=== PATIENT | female | born 1940 | race Caucasian/White ===

== ENCOUNTER 2023-10-03 19:57 | Inpatient (IN) | payer MEDICARE, MEDICAID ==
[~2023-10-03] VITALS: Ht 170.2 cm; Wt 78.8 kg
[2023-10-03] MEDS ORDERED: Albuterol/Ipratropium 3 MG-0.5 MG/3 ML Neb Soln IH ONE (20:15)
[2023-10-03 20:21] LABS: BASO # 0.1 K/mm3 (0.0-0.2); BASO % 0.8 % (0.0-2.0); EOS # 0.2 K/mm3 (0.0-0.7); EOS % 3.4 % (0.0-4.0); GRAN # 3.8 K/mm3 (1.4-6.5); GRAN % 63.7 % (42.2-75.2); HEMATOCRIT 39.8 % (37.0-47.0); LYMPH # 1.3 K/mm3 (1.2-3.4); LYMPH % 22.7 % (20.0-51.0); MEAN CELL VOLUME 106 fl (80.0-100.0); MEAN CORPUSCULAR HEMOGLOBIN 32 pg (27-31); MEAN CORPUSCULAR HGB CONC 30 g/dl (33.0-37.0); MONO # 0.5 K/mm3 (0.1-0.6); MONO % 9.1 % (1.7-9.3); PLATELET COUNT 203 K/mm3 (130-400); RED BLOOD COUNT 3.75 M/mm3 (4.10-5.30); REDCELL DISTRIBUTION WIDTH-CV 14.3 % (11.5-14.5)
[2023-10-03 20:37] LABS: ALBUMIN 3.2 g/dL (3.4-4.8); BILIRUBIN,TOTAL 0.8 mg/dL (0.2-1.2); C-REACTIVE PROTEIN 3.23 mg/dL (0.00-0.50); CALCIUM 9.5 mg/dL (8.4-10.2); CREATININE, serum 0.98 mg/dL (0.57-1.11); TOTAL PROTEIN 8.8 g/dl (6.2-8.1)
[2023-10-03 20:44] LABS: TROPONIN-I 0.064 ng/mL (0.00-0.033)
[2023-10-03] MEDS ORDERED: Furosemide 40 MG/4 ML VIAL IV ONE (21:15)
[2023-10-03 21:54] LABS: URINE APPEARANCE CLEAR (CLEAR/HAZY); URINE BLOOD NEGATIVE (NEGATIVE); URINE COLOR YELLOW (YELLOW); URINE GLUCOSE NEGATIVE (NEGATIVE); URINE KETONE NEGATIVE (NEGATIVE); URINE NITRATE NEGATIVE (NEGATIVE); URINE PROTEIN(semi-quant) NEGATIVE (NEGATIVE)
[2023-10-03 21:55] LABS: COLLECTION METHOD CATHETER
[2023-10-03] MEDS ORDERED: Albuterol/Ipratropium 3 MG-0.5 MG/3 ML Neb Soln IH PRN (22:15)
[2023-10-03] MEDS ORDERED: ELIQUIS 5MG PO (22:46)
[2023-10-03] MEDS ORDERED: NEURONTIN100 MG/CAP PO (22:47)
[2023-10-03] MEDS ORDERED: LASIX 40MG TABL40 MG PO (22:47)
[2023-10-03] MEDS ORDERED: FLOMAX 0.40.4 MG/CAP PO (22:48)
[2023-10-03] MEDS ORDERED: DESYREL 50MG50 MG PO (22:48)
[2023-10-03] MEDS ORDERED: IMODIUM 2MG CAPS2 MG PO (22:49)
[2023-10-03] MEDS ORDERED: MACROBID 1100 MG/CAP PO (22:49)
[2023-10-03] MEDS ORDERED: SENNA-S 50 MG-81 TAB PO (22:49)
[2023-10-03] MEDS ORDERED: PERCOCET 325 MG1 TA2 PO ×2 (22:50→22:51)
[2023-10-03] MEDS ORDERED: TOPROL XL 50MG50 MG PO (22:50)
[2023-10-03] MEDS ORDERED: TYLENOL 500MG500 MG PO (22:53)
[2023-10-03] MEDS ORDERED: K-TAB20 PO (22:53)
[2023-10-03] MEDS ORDERED: ASPIRIN E.C. 8181 MG PO (22:54)
[2023-10-03] MEDS ORDERED: COLACE 100100 MG/CAP PO (22:54)
[2023-10-03] MEDS ORDERED: VENTOLIN0.09 MG IH (22:54)
[2023-10-03] MEDS ORDERED: DELSYM COUGH-S180 ML PO (22:55)
[2023-10-03 22:57] LABS: MAGNESIUM 1.8 mg/dL (1.6-2.6)
[2023-10-03] MEDS ORDERED: DULCOLAX S10 MG/SUPP RC (22:57)
[2023-10-03] MEDS ORDERED: Sennosides/Docusate 8.6-50 MG TAB PO PRN (23:00)
[2023-10-03] MEDS ORDERED: oxyCODONE/Acetaminophen 5-325 MG TAB PO PRN (23:00)
[2023-10-03] MEDS ORDERED: Acetaminophen 500 MG TAB PO PRN (23:00)
[2023-10-03] MEDS ORDERED: cefTRIAXone 1 G in Water For Injection,Sterile 10 ML IV SCH (23:00)
[2023-10-03 23:18] LABS: THYROID STIMULATING HORMONE 2.922 uIU/mL (0.350-4.940)
[2023-10-03] MEDS ORDERED: CEFACLOR250 MG PO (23:44)
[2023-10-04] VITALS (9 sets, daily range): BP systolic 107–138; BP diastolic 56–87; PULSE 70–75; TEMP 97.3–98
[2023-10-04] MEDS ORDERED: Glucagon 1 MG VIAL IM PRN (01:30)
[2023-10-04] MEDS ORDERED: Dextrose (Glucose) 15 GM (4 x 3.75 GM) Chewable TABLET PACK PO PRN (01:30)
[2023-10-04] MEDS ORDERED: Dextrose 50% Water 25 GM/50 ML SYRINGE IV PRN (01:30)
[2023-10-04] MEDS ORDERED: Albuterol/Ipratropium 3 MG-0.5 MG/3 ML Neb Soln IH SCH (02:00)
--- NOTE | 2023-10-04 03:32 | NUR ---
TROPONIN I IS 0.054, TRENDING DOWN. PROVIDER NOTIFIED.
--- NOTE | 2023-10-04 06:22 | NUR ---
PT ARRRIVED TO MED UNIT FROM ED AROUND 0000, SHE IS ALERT AND ORIENTED, VERY PLEASANT WOMAN WITH MANY COMPLIMENTS AND IS A GREAT HISTORIAN. SHE HAS A PATENT IV INT TO HER LFA. VSS, ASSESSED AND HAS MULTIPLE WOUNDS TO HER BILAT LOWER EXT. WOUND AND CARDIOLOGY IS CONSULTED. WE GAVE HER A BED BATH HER SKIN LOOKS GOOD ASIDE FROM HER WOUNDS TO HER LOWER EXTREMITES. CALL LIGHT WITHIN REACH, BED ALARM ENGAGED.
[2023-10-04] MEDS ORDERED: Furosemide 40 MG/4 ML VIAL IV SCH (07:00)
[2023-10-04] MEDS ORDERED: Formoterol Neb Soln 20 MCG/2 ML UD IH SCH (07:00)
[2023-10-04] MEDS ORDERED: Budesonide Neb Susp 0.5 MG/2 ML AMP IH SCH (07:00)
[2023-10-04 07:40] LABS: BASO % 0.8 % (0.0-2.0); EOS # 0.2 K/mm3 (0.0-0.7); EOS % 3.3 % (0.0-4.0); GRAN # 3.2 K/mm3 (1.4-6.5); GRAN % 63.4 % (42.2-75.2); LYMPH # 1.1 K/mm3 (1.2-3.4); LYMPH % 21.3 % (20.0-51.0); MEAN CELL VOLUME 102 fl (80.0-100.0); MEAN CORPUSCULAR HGB CONC 31 g/dl (33.0-37.0); MONO # 0.6 K/mm3 (0.1-0.6); PLATELET COUNT 186 K/mm3 (130-400); RED BLOOD COUNT 3.11 M/mm3 (4.10-5.30); REDCELL DISTRIBUTION WIDTH-CV 14.4 % (11.5-14.5)
[2023-10-04 07:44] LABS: HEMATOCRIT 31.7 % (37.0-47.0); MEAN CORPUSCULAR HEMOGLOBIN 32 pg (27-31)
[2023-10-04 07:45] LABS: HEMOGLOBIN 9.9 g/dl (12.5-16.0)
[2023-10-04] MEDS ORDERED: Insulin Lispro (HumaLOG) SQ SCH (08:00)
[2023-10-04 08:59] LABS: CREATININE, serum 0.84 mg/dL (0.57-1.11); POTASSIUM 3.6 mEq/L (3.5-4.5)
[2023-10-04] MEDS ORDERED: Apixaban 5 MG TABLET PO SCH (09:00)
[2023-10-04] MEDS ORDERED: Docusate Sodium 100 MG CAP PO SCH (09:00)
[2023-10-04] MEDS ORDERED: oxyCODONE/Acetaminophen 5-325 MG TAB PO SCH (09:00)
[2023-10-04] MEDS ORDERED: Gabapentin 100 MG CAP PO SCH (09:00)
[2023-10-04] MEDS ORDERED: dexAMETHasone 10 MG/ML VIAL IV SCH (09:00)
--- NOTE | 2023-10-04 09:31 | NUR ---
0810- PAGEMalu, CALL RETURNED AND NOTIFIED OF CONSULT.
--- NOTE | 2023-10-04 11:13 | NUR ---
SW met with patient to complete intake. Patient provides she lives in [facility] at [facility]. Point of contact is daughter Florinda Butler [phone]. Patient provides she utilizes a wheelchair, obtains assistance with some tasks, unsure of PCP is utilizes [facility]. Patient plans to return to [facility] upon discharge. FERNANDEZ will continue to follow. Discharge plan: [facility] return
[2023-10-04] MEDS ORDERED: traZODone 50 MG TAB PO SCH (21:00)
--- NOTE | 2023-10-04 22:00 | NUR ---
Patient resting in bed. Rates her pain at 5/10, prn pain meds given. Needs met. Turned patient to left side. Assessment compelte. IV in left forearm flushes easily with no complications. Call light and personal items in reach. Bed in low position and bed alarm on.
[2023-10-05] VITALS (11 sets, daily range): BP systolic 106–161; BP diastolic 61–85; PULSE 63–73; TEMP 97.8–98.4
--- NOTE | 2023-10-05 01:15 | NUR ---
Talked with hospitalist Meredith about patient having scheduled bladder scans and notified patient is voiding appropriately and last bladder scan was 184. Recieved orders to move bladder scan to PRN.
--- NOTE | 2023-10-05 05:50 | NUR ---
Patient resting in bed. Denies any pain or needs at this time. No changes over night. Call light and personal items in reach. Bed in low position and bed alarm on.
--- NOTE | 2023-10-05 07:36 | NUR ---
SPO2 ON RA 92%, BE CL T/O, NPC, REGAN RTY TX WEL.
[2023-10-05 08:26] LABS: BASO # 0.1 K/mm3 (0.0-0.2); EOS # 0.1 K/mm3 (0.0-0.7); EOS % 1.8 % (0.0-4.0); GRAN # 3.4 K/mm3 (1.4-6.5); GRAN % 66.1 % (42.2-75.2); HEMATOCRIT 33.2 % (37.0-47.0); HEMOGLOBIN 10.6 g/dl (12.5-16.0); LYMPH # 1.1 K/mm3 (1.2-3.4); LYMPH % 20.6 % (20.0-51.0); MEAN CELL VOLUME 100 fl (80.0-100.0); MEAN CORPUSCULAR HEMOGLOBIN 32 pg (27-31); MEAN CORPUSCULAR HGB CONC 32 g/dl (33.0-37.0); MEAN PLATELET VOLUME 10.3 fl (7.4-10.4); MONO # 0.5 K/mm3 (0.1-0.6); MONO % 10.3 % (1.7-9.3); PLATELET COUNT 201 K/mm3 (130-400); RED BLOOD COUNT 3.32 M/mm3 (4.10-5.30); REDCELL DISTRIBUTION WIDTH-CV 14.2 % (11.5-14.5)
[2023-10-05 08:41] LABS: CALCIUM 8.9 mg/dL (8.4-10.2); CREATININE, serum 0.87 mg/dL (0.57-1.11); POTASSIUM 3.7 mEq/L (3.5-4.5)
--- NOTE | 2023-10-05 10:00 | NUR ---
PT LAYING IN BED UPON ENTERING. ASSESSMENT DONE, MEDS GIVEN PER ORDER. PT ORIENTED TO PERSON, PLACE AND TIME, NOT SITUATION. INT TO LEFT FOREARM PATENT. PT DENIES PAIN AND SCHEDULED PERCOCET RETURNED TO [facility]. LEFT HEEL AND RIGHT FOOT WOUNDS DRESSED BY WOUND CARE THIS MORNING, BOTH CLEAN DRY AND INTACT. MULTIPLE TOES AMPUTATED. PT DENIES NEEDS. BED IN LOWEST POSITION, CALL LIGHT IN REACH.
[2023-10-05] MEDS ORDERED: DELSYM30 MG/5 ML PO (10:46)
[2023-10-05] MEDS ORDERED: LASIX 40MG TABL40 MG PO (10:48)
--- NOTE | 2023-10-05 13:18 | NUR ---
Initial visit; Patient thanked Information Services Manager for looking in on her and offering Spiritual Care. She stated the would like to be kept in Information Services Manager's prayers and thanked Information Services Manager for offering God's blessings.
--- NOTE | 2023-10-05 15:52 | NUR ---
Product Development Engineer contacted Brenda at [facility] and sent clinical updates via secure email. FERNANDEZ also requested copy of DPOA-HC. FERNANDEZ contacted patient's daughter, Estefania to provide update. Estefania provided contact information also for her brother, Ric (ph#[phone]). FERNANDEZ followed up with Brenda who advised patient has used all of her skilled days and has been getting PT B therapy. Discharge Plan: [facility] with Part B therapy
--- NOTE | 2023-10-05 18:26 | NUR ---
PT TRANSFERRED TO CHAIR WITH 2 ASSIST AND GAIT BELT. DINNER AT BEDSIDE. PT DENIES NEEDS. CHAIR ALARM ON, CALL LIGHT IN REACH
--- NOTE | 2023-10-05 22:27 | NUR ---
Shift assessment complete. Patient denies pain at this time. Assisted her from chair to bed with help of PCT. Denies shortness of breath or chest pain. Call light is within reach. Bed is locked and in low position.
[2023-10-06] VITALS (8 sets, daily range): BP systolic 118–137; BP diastolic 55–76; PULSE 67–71; TEMP 97.5–98
[2023-10-06 06:40] LABS: BASO % 0.5 % (0.0-2.0); EOS # 0.1 K/mm3 (0.0-0.7); EOS % 1.1 % (0.0-4.0); GRAN % 71.9 % (42.2-75.2); HEMOGLOBIN 10.1 g/dl (12.5-16.0); LYMPH % 17.4 % (20.0-51.0); MEAN CELL VOLUME 99 fl (80.0-100.0); MEAN CORPUSCULAR HEMOGLOBIN 32 pg (27-31); MEAN CORPUSCULAR HGB CONC 32 g/dl (33.0-37.0); MEAN PLATELET VOLUME 10.4 fl (7.4-10.4); MONO # 0.5 K/mm3 (0.1-0.6); MONO % 8.7 % (1.7-9.3); PLATELET COUNT 212 K/mm3 (130-400); RED BLOOD COUNT 3.18 M/mm3 (4.10-5.30)
[2023-10-06 06:43] LABS: HEMATOCRIT 31.6 % (37.0-47.0)
[2023-10-06 07:03] LABS: CALCIUM 8.7 mg/dL (8.4-10.2); CREATININE, serum 0.79 mg/dL (0.57-1.11); POTASSIUM 3.4 mEq/L (3.5-4.5)
--- NOTE | 2023-10-06 10:20 | NUR ---
patient alert and oriented to self. patient reports pain of 3/10. RA, sitting in bed finishing up breakfast.shift assessment completed. patient did have a v-tach episode earlier this morning (provider was notified at 0808). patient felt fine at the time at the time and was receiving RT treatment. call light within reach. bed at lowest position.
[2023-10-06] MEDS ORDERED: *Potassium Replacement Protocol MC SCH (11:15)
[2023-10-06] MEDS ORDERED: Potassium Bicarbonate/Citrate 20 MEQ Effervescent TAB PO SCH (11:15)
[2023-10-06] MEDS ORDERED: PREDNISONE20 MG PO (11:28)
[2023-10-06] MEDS ORDERED: LASIX 40MG TABL40 MG PO (11:33)
[2023-10-06] MEDS ORDERED: RT ADVAIR 228 DISKUS IH (11:34)
[2023-10-06] MEDS ORDERED: Amiodarone 200 MG TAB PO SCH (12:15)
[2023-10-06] MEDS ORDERED: Magnesium Sulfate 2 GM/50 ML IV SOLN IV SCH (12:45)
--- NOTE | 2023-10-06 13:03 | NUR ---
patient IV infiltrated. iv stopped and removed from patient. a new iv was started on right forarm.
--- NOTE | 2023-10-06 13:15 | NUR ---
patient dressing changed. some yellow dischargre on wound. some foul smell present.
--- NOTE | 2023-10-06 13:30 | NUR ---
patient escorted out of [facility] staff who will be transporting her back to that facility. wheelchair was borrowed from this hospital due to staff picking up patient did not have one available.
[2023-10-06] MEDS ORDERED: CORDARONE200 MG/TAB PO (15:06)
[2023-10-06] MEDS ORDERED: TOPROL XL 25MG25 MG PO (15:06)
--- NOTE | 2023-10-06 15:22 | NUR ---
FERNANDEZ sent discharge orders and med list via secure email to Brenda at [facility]. Transport here to take patient to facility. SW met with patient earlier today to complete Medicare IM form. Patient signed, original placed on chart, copy provided to patient.
--- NOTE | 2023-10-06 15:30 | NUR ---
patient escorted out of unit by [facility] staff who will be transporting her back to that facility. wheelchair was borrowed from this hospital due to staff picking up patient did not have one available.
--- NOTE | 2023-10-06 15:50 | NUR ---
patient shift report given to nurse receiving patient at [facility].
== END 2023-10-06 15:30 | DRG 280 ==
LOC: COL.ER 19:57 → MEDICAL 22:09
PROVIDERS: Emergency Medicine; Nurse Practitioner Family; ADMIT Hospitalist
DX: I50.9 Heart failure, unspecified (principal); J96.01 Acute respiratory failure with hypoxia; I21.4 Non-ST elevation (NSTEMI) myocardial infarction; J44.1 Chronic obstructive pulmonary disease with (acute) exacerbation; I48.20 Chronic atrial fibrillation, unspecified; N39.0 Urinary tract infection, site not specified; I35.0 Nonrheumatic aortic (valve) stenosis; Z79.01 Long term (current) use of anticoagulants; R33.9 Retention of urine, unspecified; R32 Unspecified urinary incontinence; L97.512 Non-pressure chronic ulcer of other part of right foot with fat layer exposed; D64.9 Anemia, unspecified; Z66 Do not resuscitate; E11.40 Type 2 diabetes mellitus with diabetic neuropathy, unspecified
CPT/HCPCS: J0696; J1100; J1815; J1940; J3475